=== PATIENT | female | born 1980 | race Caucasian/White ===

== ENCOUNTER 2016-10-07 12:19 | Inpatient (IN) | payer OTHER ==
--- NOTE | ~2016-10-07 | DS ---
Unit #: [id number] #: [id number] Patient: RODOLFO AGUIRRE [id number] [facility] [address] [place] [address] [id number] MR#: [id number] NAME: RODOLFO AGUIRRE ROOM: 14 Age: 36 Sex: F Admission Date: 10/07/2016 : 1980 Discharge Date: 10/12/2016 Attending Physician: Nicholas Ortiz M.D. Primary Care Physician: Generic Doctor Not In System DISCHARGE SUMMARY REASON FOR ADMISSION The patient is a 36-year-old white female, admitted once again voicing suicidal ideation. HOSPITAL COURSE The patient was admitted to the [facility] unit and placed on suicide precautions. She was continued on her previously prescribed medications and was begun on lurasidone 20 mg daily to address depressive symptoms with discontinuation of Zyprexa ordered. The patient seemed to brighten with initiation of lurasidone. She was somewhat hesitant to consider discharge on 10/12/2016, but at that time denied suicidal ideation and realistic expectations of inpatient care were discussed with the patient at that time and discharge was ordered. FINAL DIAGNOSES Bipolar disorder, depressed phase; opioid use disorder. DISPOSITION ON DISCHARGE The patient is discharged on the following medications: Ritalin 20 mg b.i.d. for attention-deficit disorder, Klonopin 2 mg t.i.d. for anxiety, Latuda 20 mg daily for mood stabilization, Suboxone 8/2 b.i.d. for opioid addiction, Prozac 40 mg daily for depression. Once again, this physician will provide only a prescription for Latuda given concerns about the patient's somewhat unconventional repeat medication regimen. FOLLOWUP Followup will take place in the intensive outpatient program provided by this facility. PROGNOSIS The patient's prognosis is considered fair. Dictated by... Nicholas Ortiz M.D. CB/ronald TD: 10/12/2016 22:52 JOB #: [id number] Unit #: [id number] #: [id number] Patient: RODOLFO AGUIRRE DISCHARGE SUMMARY X Nicholas Ortiz MD X DISCHARGE SUMMARY
--- NOTE | ~2016-10-07 | PN ---
Unit #: [id number] #: [id number] Patient: RODOLFO AGUIRRE [id number] [facility] [address] [place] [address] [id number] I MR#: [id number] NAME: RODOLFO AGUIRRE ROOM: P114 Age: 36 Sex: F Admission Date: 10/07/2016 : 1980 Attending Physician: Nicholas Ortiz M.D. Admitting Physician: Nicholas Ortiz M.D. Primary Care Physician: Generic Doctor Not In System [facility] PROGRESS NOTES DATE 10/13/2016 DISCUSSION The patient sabotaged yesterdays discharge by reporting ongoing suicidal ideation and feelings of "being scared" did consider discharge. She has been transferred to the [address] [place] [address] unit and is now on room lock out precautions from 6 a.m. to 10 a.m. to assure her safety. Dictated by... Nicholas Ortiz M.D. CB/rodrigo TD: 10/14/2016 00:13 JOB #: [id number] [facility] PROGRESS NOTES X Nicholas Ortiz MD PROGRESS NOTE
--- NOTE | ~2016-10-07 | HP ---
Unit #: [id number] #: [id number] Patient: RODOLFO AGUIRRE [id number] [facility] [address] [place] [address] [id number] I MR#: [id number] NAME: RODOLFO AGUIRRE ROOM: P181 Age: 36 Sex: F Admission Date: 10/07/2016 : 1980 Attending Physician: Nicholas Ortiz M.D. Admitting Physician: Nicholas Ortiz M.D. Primary Care Physician: Generic Doctor Not In System HISTORY AND PHYSICAL HISTORY OF PRESENT ILLNESS Rodolfo is a 36 year old admitted to [facility] with depression and verbalizing wanting to hurt herself. The patient was seen and H and P dated 09/19/2016 was reviewed. This is current. No changes. Please see H and P dated 09/19/2016. Dictated by... Kierra Acosta P.A.-C. for Yvan Collins/rodrigo TD: 10/07/2016 20:22 JOB #: [id number] HISTORY AND PHYSICAL X Kierra Acosta HISTORY AND PHYSICAL
--- NOTE | ~2016-10-07 | PN ---
Unit #: [id number] #: [id number] Patient: RODOLFO AGUIRRE [id number] [facility] [address] [place] [address] [id number] MR#: [id number] NAME: RODOLFO AGUIRRE ROOM: P181 Age: 36 Sex: F Admission Date: 10/07/2016 : 1980 Attending Physician: Nicholas Ortiz M.D. Admitting Physician: Nicholas Ortiz M.D. Primary Care Physician: Generic Doctor Not In System [facility] PROGRESS NOTES DATE 10/11/2016 DISCUSSION The patient is in brighter spirits today and reports that she is tolerating initiation of Latuda without complaint. She otherwise voices no new complaints but reports that suicidal ideation continues to "come and go." She is expressing interest in residential treatment of some sort. Dictated by... Nicholas Ortiz M.D. CB/rodrigo TD: 10/12/2016 00:30 JOB #: [id number] [facility] PROGRESS NOTES X Nicholas Ortiz MD PROGRESS NOTE
--- NOTE | ~2016-10-07 | PN ---
Unit #: [id number] #: [id number] Patient: RODOLFO AGUIRRE [id number] [facility] [address] [place] [address] [id number] I MR#: [id number] NAME: RODOLFO AGUIRRE ROOM: P181 Age: 36 Sex: F Admission Date: 10/07/2016 : 1980 Attending Physician: Nicholas Ortiz M.D. Admitting Physician: Nicholas Ortiz M.D. Primary Care Physician: Generic Doctor Not In System [facility] PROGRESS NOTES DATE 10/09/2016 DISCUSSION The patient has tolerated initiation of lurasidone without complaint. She continues to endorse positive suicidal ideation during today's interview. I have encouraged her to increase her participation within the therapeutic milieu. Dictated by... Nicholas Ortiz M.D. CB/maximilian TD: 10/09/2016 15:13 JOB #: [id number] [facility] PROGRESS NOTES X Nicholas Ortiz MD PROGRESS NOTE
--- NOTE | ~2016-10-07 | DS ---
Unit #: [id number] #: [id number] Patient: RODOLFO AGUIRRE [id number] [facility] [address] [place] [address] [id number] I MR#: [id number] NAME: RODOLFO AGUIRRE ROOM: 14 Age: 36 Sex: F Admission Date: 10/07/2016 : 1980 Discharge Date: 10/14/2016 Attending Physician: Nicholas Ortiz M.D. Primary Care Physician: Generic Doctor Not In System DISCHARGE SUMMARY ADDENDUM HOSPITAL COURSE The patient was scheduled for discharge on 10/12/2016, however, later that day, this physician learned that the patient was coursing ongoing suicidal ideation accordingly, her discharge was held and the patient transferred to the [address] [place] [address] unit and placed on room lockout precautions to assure her safety. By 10/14/2016, the patient was in brighter spirits and requested discharge. It was so ordered. Dictated by... Nicholas Ortiz M.D. CB/ronald TD: 10/15/2016 04:25 JOB #: [id number] DISCHARGE SUMMARY X Nicholas Ortiz MD X DISCHARGE SUMMARY
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
[2016-10-08 09:46] LABS: BASOPHIL% 0.5 % (0-2.5); EOSINOPHIL# 0.1 X10e3 (0-0.7); EOSINOPHIL% 2.4 % (0.0-7.0); HEMATOCRIT 36.6 % (35.0-45.0); LYMPHOCYTE# 2.2 X10e3 (1.0-3.5); LYMPHOCYTE% 47.8 % (17.0-45.0); MEAN CORPUSCULAR HEMOGLOBIN 29.3 PG (28-34); MEAN CORPUSCULAR HGB CONC 32.9 g/dL (30-36); MEAN PLATELET VOLUME 7.8 FL (6.5-11.5); MONOCYTE# 0.4 X10e3 (0-1.0); MONOCYTE% 8.8 % (3.0-12.0); NEUTROPHIL# 1.9 X10e3 (1.5-7.1); NEUTROPHIL% 40.5 % (40-75); PLATELET COUNT 259 X10e3 (140-420); RED BLOOD COUNT 4.11 X10e (3.90-5.30); RED CELL DISTRIBUTION WIDTH 15.8 % (11.0-15.5); WHITE BLOOD COUNT 4.6 X10e3 (4.0-10.5)
[2016-10-08 09:53] LABS: DIFF IND NO
[2016-10-08 10:35] LABS: ALBUMIN SERUM 3.3 g/dL (3.5-5.0); ALKALINE PHOSPHATASE 64 U/L (32-92); ALT (SGPT) 27 U/L (10-40); AST (SGOT) 27 U/L (10-42); BILIRUBIN,TOTAL 0.5 mg/dL (0.2-2.0); BLOOD UREA NITROGEN 12 mg/dL (9-23); CALCIUM SERUM 8.6 mg/dL (8.4-10.2); CARBON DIOXIDE 26 mmol/L (22-31); CHLORIDE 104 mmol/L (100-111); CREATININE SERUM 0.5 mg/dL (0.6-1.4); GLOM FILT RATE Estimated ABOVE60 mL/min (>60); GLUCOSE FASTING 86 mg/dL (70-110); POTASSIUM 4.6 mmol/L (3.5-5.1); PROTEIN TOTAL SERUM 6.4 g/dL (6.0-8.3); SODIUM 137 mmol/L (135-145)
[2016-10-08 14:06] LABS: THYROID STIMULATING HORMONE 0.31 uIU/ml (0.34-5.60)
[2016-10-08 14:15] LABS: FREE THYROXIN (T4) 0.78 ng/dL (0.58-1.64)
[2016-10-09 09:55] LABS: URINE APPEARANCE CLEAR; URINE BILIRUBIN NEG (NEG); URINE BLOOD NEG (NEG); URINE COLOR YELLOW; URINE GLUCOSE NEG (NEG); URINE KETONE NEG (NEG); URINE LEUKOCYTE ESTERASE NEG (NEG); URINE NITRATE NEG (NEG); URINE PH 6.5 (5-8); URINE PROTEIN NEG (NEG)
[2016-10-09 10:18] LABS: AMPHETAMINE NEG (NEG); BARBITURATES NEG (NEG); BENZODIAZEPINES POS (NEG); COCAINE NEG (NEG); MARIJUANA NEG (NEG); OPIATES NEG (NEG); TRICYCLIC ANTIDEPRESSANTS NEG (NEG); U METHADONE NEG (NEG)
== END 2016-10-14 16:05 | disposition home or self-care (01) | DRG 885 ==
LOC: P1E 12:19 → P1S 10-12 17:50
PROVIDERS: Specialist
DX: F31.9 Bipolar disorder, unspecified (principal); F11.90 Opioid use, unspecified, uncomplicated
CPT/HCPCS: 80053; 80307; 81003; 84439; 84443; 84703; 85025

== ENCOUNTER 2017-01-06 13:00 | Inpatient (IN) | payer OTHER ==
--- NOTE | ~2017-01-06 | HP ---
Unit #: [id number] #: [id number] Patient: RODOLFO AGUIRRE [id number] [place] [address] [id number] I MR#: [id number] NAME: RODOLFO AGUIRRE ROOM: P179 Age: 36 Sex: F Admission Date: 01/06/2017 : 1980 Attending Physician: Abiodun Marcum M.D. Admitting Physician: Abiodun Marcum M.D. Primary Care Physician: Primary Care Physician No HISTORY AND PHYSICAL HISTORY OF PRESENT ILLNESS Rodolfo is a 36 year old admitted to [facility] because of her continued drug use. She shoots heroin. PAST MEDICAL HISTORY 1. Long history of illicit substance abuse to include IV heroin. 2. Hepatitis C. 3. History of withdrawal seizures. 4. History of endocarditis. PAST SURGICAL HISTORY x1. ALLERGIES Keppra. SOCIAL HISTORY Smokes one-half pack per day. Denies alcohol and has a long history of illicit substance abuse to include IV heroin and psychedelic mushrooms. FAMILY HISTORY Medically noncontributory. REVIEW OF SYSTEMS CONSTITUTIONAL: No fever or chills. HEENT: Denies any sore throat, ear pain or runny nose. CARDIOVASCULAR: Denies chest pain, irregular heart rhythm or palpitations. CHEST: Denies shortness of breath or cough. No hemoptysis. GASTROINTESTINAL: Denies nausea, vomiting, diarrhea or chronic constipation. ENDOCRINE: Denies history of increased thirst or urination. No recent significant weight loss or gain. GENITOURINARY: Denies dysuria, frequency, or hematuria. SKIN: Denies any rashes. She reports development of an abscess along her right AC area in the past 48 hours. HEMATOLOGIC: Denies history of increased bleeding or bruising. MUSCULOSKELETAL: Denies any hot, swollen joints. No generalized muscle pain. NEUROLOGIC: Denies problems with vision or speech. No frequent, severe headaches. No numbness, tingling or weakness in any extremities. Denies loss of bladder or bowel control. CURRENT MEDICATIONS Unit #: [id number] #: [id number] Patient: RODOLFO AGUIRRE 1. Detox protocol. 2. Cleocin 300 mg t.i.d. 3. Nicotine patch 14 mg q. day. 4. Prozac 40 mg q. day. PHYSICAL EXAMINATION GENERAL: Alert, well nourished. No apparent distress. VITAL SIGNS: Blood pressure 120/90, heart rate 80, respirations 16, and temperature 98.6. WEIGHT: 130. HEIGHT: 5 feet 6 inches. SKIN: Warm and dry without rash. She has approximately large egg-sized red fluctuant warm tender area along the right AC. Skin is intact. HEENT: Normocephalic. TMs not viewed. Oral and nasal passages clear. Conjunctivae clear. PERRLA. EOMs intact. NECK: Supple without lymphadenopathy or thyromegaly. HEART: Regular rate and rhythm without murmur. LUNGS: Clear. ABDOMEN: Soft, nontender. : Not done. EXTREMITIES: No evidence of cyanosis, clubbing or edema. Moves all without focal deficit. NEUROLOGICAL: Grossly within normal limits. Cranial Nerves: II: Visual cunningham are intact. III, IV AND : Extraocular movements are intact. Pupils are equal, round and reactive to light. V: Facial sensation is grossly normal. VII: Facial movements and expression are normal. VIII: Auditory acuity grossly intact. IX, X: Uvula is midline. Phonation is normal. XI: Patient shrugs shoulders and turns head normally. XII: Tongue protrudes in the midline. Sensory and Motor Function: Sensory and motor sensation is grossly normal. Motor: moves all extremities well. Coordination: Gait is normal. Deep Tendon Reflexes: Intact. IMPRESSION 1. Psychiatric admission. 2. IV drug use. 3. Hepatitis C. 4. Abscess along the right AC area, correlates with IV drug use. RECOMMENDATIONS PSYCHIATRIC: Per psychiatrist. MEDICAL: 1. I see no contraindication to participate in this facility's activities. 2. Detox per protocol. 3. Cleocin 300 mg t.i.d. was started at the time of admission. She is also to apply warm compresses. MEDICAL PROGNOSIS Good. MEDICAL CONDITION Stable. Unit #: [id number] #: [id number] Patient: RODOLFO AGUIRRE Dictated by... Kierra Acosta P.A.-C. for Yvan Collins TD: 01/07/2017 12:47 JOB #: [id number] HISTORY AND PHYSICAL Page 1 of 1 X Kierra Acosta HISTORY AND PHYSICAL
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
--- NOTE | ~2017-01-06 | PN ---
Unit #: [id number] #: [id number] Patient: RODOLFO AGUIRRE [id number] [facility] [address] [place] [address] [id number] I MR#: [id number] NAME: RODOLFO AGUIRRE ROOM: P179 Age: 36 Sex: F Admission Date: 01/06/2017 : 1980 Attending Physician: Abiodun Marcum M.D. Admitting Physician: Abiodun Marcum M.D. Primary Care Physician: Primary Care Physician Angela PERALES PROGRESS NOTES DATE OF SERVICE 01/12/2017 DISCUSSION Rodolfo has mild to moderate detox symptoms remaining today. She is doing a little better with a brighter affect and less dysphoria. She is alert and fully oriented with no active psychosis. ASSESSMENT Schizoaffective disorder, polysubstance attendance. PLAN Continue detox protocol and current precautions. Dictated by... Yvan Madera/rodrigo TD: 01/19/2017 21:30 JOB #: [id number] [facility] PROGRESS NOTES Page 1 of 1 X Abiodun Marcum MD PROGRESS NOTE
--- NOTE | ~2017-01-06 | PN ---
Unit #: [id number] #: [id number] Patient: RODOLFO AGUIRRE [id number] [facility] [address] [place] [address] [id number] I MR#: [id number] NAME: RODOLFO AGUIRRE ROOM: P179 Age: 36 Sex: F Admission Date: 01/06/2017 : 1980 Attending Physician: Abiodun Marcum M.D. Admitting Physician: Abiodun Marcum M.D. Primary Care Physician: Primary Care Physician No ANGELLA PROGRESS NOTES DATE OF SERVICE 01/10/2017 DISCUSSION Rodolfo continues to have active withdrawal symptoms today. Her mood is depressed with flat affect and she appears to be mildly paranoid this morning. She is alert, oriented to person, location, time and partially to situation. Memory and concentration are also mildly impaired. ASSESSMENT Schizoaffective disorder, polysubstance attendance. PLAN Continue detox protocol and current precautions Dictated by... Yvan Madera/rodrigo TD: 01/19/2017 22:18 JOB #: [id number] [facility] PROGRESS NOTES Page 1 of 1 X Abiodun Marcum MD PROGRESS NOTE
--- NOTE | ~2017-01-06 | PN ---
Unit #: [id number] #: [id number] Patient: RODOLFO AGUIRRE [id number] [facility] [address] [place] [address] [id number] I MR#: [id number] NAME: RODOLFO AGUIRRE ROOM: P179 Age: 36 Sex: F Admission Date: 01/06/2017 : 1980 Attending Physician: Abiodun Marcum M.D. Admitting Physician: Abiodun Marcum M.D. Primary Care Physician: Primary Care Physician Angela PERALES PROGRESS NOTES DATE 01/11/2017 DISCUSSION Rodolfo continues to show improvement today. She still has [id number] detox symptomatology and appears mildly paranoid upon approach. However, her affect is brighter and her speech is more spontaneous with better eye contact. She is alert and oriented to person, location, situation and mainly to time. Memory and concentration appear improved. ASSESSMENT 1. Schizoaffective disorder. 2. Polysubstance dependence. PLAN Continue current treatment plan. Dictated by... Yvan Madera/maximilian TD: 01/19/2017 21:49 JOB #: [id number] [facility] PROGRESS NOTES Page 1 of 1 X Abiodun Marcum MD PROGRESS NOTE
[2017-01-10 12:25] LABS: AMPHETAMINE POS (NEG); BARBITURATES NEG (NEG); BENZODIAZEPINES POS (NEG); COCAINE NEG (NEG); MARIJUANA NEG (NEG); OPIATES POS (NEG); TRICYCLIC ANTIDEPRESSANTS POS (NEG); U METHADONE NEG (NEG)
== END 2017-01-13 13:00 | DRG 885 ==
LOC: P1E 16:39
PROVIDERS: Psychiatry & Neurology Psychiatry
PROC: HZ2ZZZZ Detoxification Services for Substance Abuse Treatment (ICD-10-PCS; principal; 2017-01-06)
DX: F25.9 Schizoaffective disorder, unspecified (principal); F11.20 Opioid dependence, uncomplicated; Z81.8 Family history of other mental and behavioral disorders; Z81.1 Family history of alcohol abuse and dependence; F15.10 Other stimulant abuse, uncomplicated; F13.10 Sedative, hypnotic or anxiolytic abuse, uncomplicated; F17.210 Nicotine dependence, cigarettes, uncomplicated
CPT/HCPCS: 80307; 84703; 86592